=== PATIENT | female | born 1995 | race Caucasian/White ===

== ENCOUNTER 2022-09-02 08:59 | Outpatient (CLI) | payer OTHER, SELFPAY ==
--- OUTSIDE RECORDS SUMMARY | 2022-09-02 09:09 | XMS_ITS | Encounter Summary ---
:1995 Author Organization [facility] Address [address] [place] [address] Care Team Providers Name Role Phone Isabelle Garzon Primary Care Provider [phone] Reason for Visit Reason Comments Refill Encounter Details Date Type Department Care Team Description 12/29/2018 Refill [place] 1515 Luisa Contreras MD Refill Obstetrics/Gynecolog y [address] [place] [address] [facility] [address] [address] [place] [phone] (Wo rk) Social History Tobacco Use Types Packs/Day Years Used Date Smoking Tobacco: Never Smokeless Tobacco: Never Alcohol Use Standard Drinks/Week Comments Yes 0 (1 standard drink = 0.6 oz pure alcoho l) socially Sex Assigned at Date Recorded Not on file documented as of this encounter Nursing Notes Yoli Armas RN - 12/29/2018 10:51 AM CST Renewed medication per medication refill protocol. Requested Prescriptions Signed Prescriptions Disp Refills ??? TRI-SPRINTEC 0.18/0.215/0.25 MG-35 MCG tablet 84 Tablet 0 Sig: TAKE 1 TABLET BY MOUTH DAILY Authorizing Provider: LUISA CONTRERAS Ordering User: YOLI ARMAS UCT SUPPORT TECHNICIAN documented in this encounter Plan of Treatment Not on filedocumented as of this encounter Visit Diagnoses Diagnosis Encounter for surveillance of contracept sara pills Surveillance of previously prescribed co ntraceptive pill documented in this encounter Care Teams Electric Razor Mechanic Relationship Specialty Start Date End Date Isabelle Garzon DO PCP - General Family Practice 12/14/17 [address] [place] [address] documented as of this encounter
--- OUTSIDE RECORDS SUMMARY | 2022-09-02 09:09 | XMS_ITS | Clinical Summary ---
:1995 Author Organization [facility] Address [address] [place] [address] Care Team Providers Name Role Phone Eloy Garzonn Danilo Primary Care Provider [phone] Source Comments You are receiving this document as you are listed as the primary care provider,follow-up provider, or the patient has been referred to you for consultation.This is in compliance with the Medicare and Medicaid EHR Incentive Program,which states Providers who transition their patient to another setting of careor provider of care or refers their patient to another provider of care shouldprovide summarycare record for each transition of care or referral. [place] Allergies No known active allergies Medications Medication Sig Dispensed Refills Start Date End Date Status TRI-SPRINTEC TAKE 1 TABLET BY 84 Tablet 0 12/29/2018 Active 0.18/0.215/0.25 MG-35 MOUTH DAILY MCG tabletIndications: Encounter for surveillance of contraceptive pills Immunizations Name Administration Dates Next Due 4vHPV (Gardasil) 04/04/2012, 12/01/2011, 10/09/2011 DTaP 03/31/2007 HepA Adult (19+ yrs) 06/03/2016 HepB Adult (Engerix-B, 20+ yrs, 3 dose 06/03/2016 series) IPV (Polio) 06/03/2016 MMRV (ProQuad) 04/04/2010 Meningococcal MCV4, Unspecified 02/13/2016, 06/17/2011 Formulation PPSV23 (Pneumovax) 03/08/2015 Td 01/18/2017 Varicella 01/26/2008 Zoster (Zostavax) 08/20/2009 Family History Medical History Relation Name Comments Heart Disease Father High Cholesterol Father Hypertension Father repeative miscarriages Mother Cancer, Breast Maternal Aunt Leukemia Maternal Aunt Cancer Maternal Grandfather Heart Disease Maternal Grandfather Diabetes Maternal Grandmother Cancer, Breast Paternal Aunt Cancer Paternal Grandfather Heart Disease Paternal Grandfather Relation Name Status Comments Father Alive Mother Alive Maternal Aunt Maternal Grandfather Maternal Grandmother Alive Paternal Aunt Paternal Grandfather Alive Paternal Grandmother Alive Social History Tobacco Use Types Packs/Day Years Used Date Smoking Tobacco: Never Smokeless Tobacco: Never Alcohol Use Standard Drinks/Week Comments Yes 0 (1 standard drink = 0.6 oz pure alcoho l) socially Sex Assigned at Date Recorded Not on file Last Filed Vital Signs Vital Sign Reading Time Taken Comments Blood Pressure 98/62 02/18/2018 9:51 AM CDT Pulse 76 02/18/2018 9:51 AM CDT Temperature - - Respiratory Rate - - Oxygen Saturation - - Inhaled Oxygen Concentration - - Weight 77.7 kg (171 lb 3.2 oz) 02/18/2018 9:51 AM CDT Height 178.4 cm (5' 10.25) 02/18/2018 9:51 AM CDT Body Mass Index 24.39 02/18/2018 9:51 AM CDT Plan of Treatment Health Maintenance Due Date Last Done Comments Hep C Screening (Preventive 1994 Services) COVID-19 Vaccine (#1) 1995 HIV Screening (Preventive 2010 Services) HepB (2) 07/01/2016 06/03/2016 HepA (2 of 2 - Risk 2-dose 12/04/2016 06/03/2016 series) Pap 12/21/2019 12/21/2016 (Completed) Adult Preventive Visit 02/19/2020 02/18/2018 Influenza (#1) 2022 DTaP/Tdap/Td (3 - Tdap) 01/18/2027 01/18/2017, 03/31/2007 Zoster/Shingles (1 of 2) 2044 08/20/2009 Varicella Completed 04/04/2010, 01/26/2008 HPV Vaccine Completed 04/04/2012, 12/01/2011, 10/09/2011 Pneumococcal Aged Out 03/08/2015 No longer eligib le based on patient's age to complete this to pic MCV4 Completed 02/13/2016, 06/17/2011 IPV (Polio) Aged Out 06/03/2016 No longer eligib le based on patient's age to complete this to pic Hib Aged Out No longer eligib le based on patient's age to complete this to pic Insurance Payer Benefit Plan / Subscriber ID Effective Dates Phone Addre ss Type Group BCBS BCBS OUT OF [id number] 2016-Present [address] [address] [place] [address] Care Teams Family Day Carer Relationship Specialty Start Date End Date Isabelle Garzon, PCP - General Family Practice 12/14/[address] [place] [place] [id number]
--- OUTSIDE RECORDS SUMMARY | 2022-09-02 09:09 | XMS_ITS | Encounter Summary ---
:1995 Author Organization [facility] Address [address] [place] [address] Care Team Providers Name Role Phone Isabelle Garzon Primary Care Provider [phone] Reason for Visit Reason Onset Date Comments Refill 01/15/2020 Encounter Details Date Type Department Care Team Description 01/15/2020 Refill [place] [address]15 Liz Gonzalez MD Refill Obstetrics/Gynecolog y 1515 [facility] [place] 1515 [facility] . [address] [place] [address] [place] [phone] (Wo rk) Social History Tobacco Use Types Packs/Day Years Used Date Smoking Tobacco: Never Smokeless Tobacco: Never Alcohol Use Standard Drinks/Week Comments Yes 0 (1 standard drink = 0.6 oz pure alcoho l) socially Sex Assigned at Date Recorded Not on file documented as of this encounter Nursing Notes Wendy Mejia, RN - 01/15/2020 1:55 PM CST Requested Prescriptions Refused Prescriptions Disp Refills ??? norgestimate-ethinyl estradiol (TRI-SPRINTEC) 0.18/0.215/0.25 MG-35 MCG tablet 84 Tablet 0 Sig: Take 1 Tablet by mouth daily. Refused By: WENDY MEJIA Reason for Refusal: Patient no longer under Provider care Received fax refill request for Deloris Ochoa. No one listed under that name with corresponding .Contacted pt at listed number on fax from pharmacy; pt last year. Pt last seen here 02/18/18 for annual and this clinic hasn't refilled OCP since 12/29/18 #84 R0. Pt had also seen outside providercloser to her home, thinks they gave her refill last year. Offered to make an appointment at this clinic, she will call back. ICAN HISTORY TEACHER documented in this encounter Plan of Treatment Not on filedocumented as of this encounter Visit Diagnoses Diagnosis Encounter for surveillance of contracept sara pills Surveillance of previously prescribed co ntraceptive pill documented in this encounter Care Teams Plc Engineer Relationship Specialty Start Date End Date Isabelle Garzon DO PCP - General Family Practice 12/14/[address] [place] [address] [id number] documented as of this encounter
--- OUTSIDE RECORDS SUMMARY | 2022-09-02 09:09 | XMS_ITS | Encounter Summary ---
:1995 Author Organization [employer] Address [address] [place] [address] Care Team Providers Name Role Phone Isabelle Garzon Primary Care Provider [phone] Reason for Visit Reason Comments Annual Exam Encounter Details Date Type Department Care Team Description 02/18/2018 Office Visit [place] 1515 Liz Gonzalez Well fema le exam with routine gynecological exam (Primary Dx); Obstetrics/Gynecolog y MD Encounter for surveillance of contracept sara pills; [address] [facility] Screening examination for ve nereal disease [address] [address] [place] [address] [place] [phone] Social History Tobacco Use Types Packs/Day Years Used Date Smoking Tobacco: Never Smokeless Tobacco: Never Alcohol Use Standard Drinks/Week Comments Yes 0 (1 standard drink = 0.6 oz pure alcoho l) socially Sex Assigned at Date Recorded Not on file documented as of this encounter Last Filed Vital Signs Vital Sign Reading [...] Mass Index 24.39 02/18/2018 9:51 AM CDT documented in this encounter Progress Notes Liz Gonzalez MD - 02/18/2018 9:45 AM CDT Subjective: Date of encounter: 02/18/2018 Deloris Peoples is a 22 y.o. female who presents for an annual exam. Nutritional Assistant and general health concerns: Renew BCP. Has been on them since age 13. Started because she had not gotten her periods. Grew up in [place]. Has just moved back to [place] from [place]. Had a pap last year. Menstrual History: OB History Para Term AB Living 0 0 0 0 0 0 SAB TAB Ectopic Multiple Live Births 0 0 0 0 0 No LMP recorded. History reviewed. No pertinent past medical history. There are no active problems to display for this patient. Past Surgical History: Procedure Laterality Date ??? BREAST SURGERY Left 2011 benign lump ??? WISDOM TEETH EXTRACTION Family History Problem Relation Age of Onset ??? Hypertension Father ??? Heart Disease Father ??? High Cholesterol Father ??? Cancer, Breast Maternal Aunt 40 ??? Leukemia Maternal Aunt ??? Cancer, Breast Paternal Aunt ??? repeative miscarriages [OTHER] Mother ??? Diabetes Maternal Grandmother ??? Heart Disease Maternal Grandfather ??? Cancer Maternal Grandfather ??? Heart Disease Paternal Grandfather ??? Cancer Paternal Grandfather Social History Social History ??? Marital status: Single Spouse name: N/A ??? Number of children: N/A ??? 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 Smoking status: Never Smoker ??? Smokeless tobacco: Never Used ??? Alcohol use Yes Comment: socially ??? Drug use: No ??? Sexual activity: Yes Partners: Male control/ protection: OCP Other Topics Concern ??? Bike Helmet No ??? City Water Yes ??? Exercise No ??? Guns In Home No ??? Special Diet No ??? Weight Concern No Social History Narrative Moved here from [place], [place]. Employed by [employer], in . Lives with boyfriend. Current Outpatient Prescriptions Medication Sig Dispense Refill ??? norgestimate-ethinyl estradiol (TRI-SPRINTEC) 0.18/0.215/0.25 MG-35 MCG tablet Take 1 Tab by mouth daily. 90 Tab 3 No current facility-administered medications for this visit. No Known Allergies Review of Systems A comprehensive review of systems was negative. Objective: BP 98/62 (BP Location: Right Arm, BP Cuff Size: Adult Regular) Pulse 76 Ht 5' 10.25 (1.784 m) Wt 171 lb 3.2 oz (77.7 kg) BMI 24.39 kg/m2 General Appearance: Alert, cooperative, no distress, appears stated age Neck: Supple, symmetrical, trachea midline, no adenopathy; thyroid: no enlargement/tenderness/nodules Lungs: Clear to auscultation bilaterally, respirations unlabored Heart: Regular rate and rhythm, S1 and S2 normal, no murmur, rub or gallop Breast Exam: No tenderness, masses, or nipple abnormality Abdomen: Soft, non-tender, no masses, no organomegaly Genitalia: Normal female without lesion, discharge or tenderness Pelvic: Vagina, cervix, urethra and urethral meatus are normal. Extremities: Extremities normal, atraumatic, no cyanosis or edema Skin: Skin color, texture, turgor normal, no rashes or lesions Lymph nodes: Cervical, supraclavicular, and axillary nodes normal . Assessment: Diagnosis and Associated Orders ICD-10-CM 1. Well female exam with routine gynecological exam Z01.419 2. Encounter for surveillance of contraceptive pills Z30.41 norgestimate-ethinyl estradiol (TRI-SPRINTEC) 0.18/0.215/0.25 MG-35 MCG tablet 3. Screening examination for venereal disease Z11.3 CHLAMYDIA & GC Plan: Orders as listed with the associated diagnosis above. Pap smear: every 3 years with negative pap and negative HPV, due in 2019 documented in this encounter Plan of Treatment Not on filedocumented as of this encounter Procedures Procedure Name Priority Date/Time Associated Diagnosis Comme nts CHLAMYDIA & GC (14 Routine 02/18/2018 10:32 AM Screening Re sults for this YEARS AND OLDER) CDT examination for procedur e are in venereal disease the results section. documented in this encounter Results CHLAMYDIA & GC (02/18/2018 10:32 AM CDT) Patholo gist Method Time Signature Chlamydia Negative Negative PN SOFT Trachomatis STD Comment: Test Performed by Land Development Project Manager Mediated Amplification CLIA Number [id number] N. gonorrhoeae STD Negative Negative PN SOFT Comment: Test Performed by Land Development Project Manager Mediated Amplification Performed at [facility], [address] [place] [address], [place] ??[address] CLIA Number [id number] Source STD Vagina PN SOFT Comment: CLIA Number [id number] Specimen Anatomical Collection Method Collection Time Receive d Time (Source) Location / / Volume Laterality 02/18/2018 10:32 02/18/2018 2:59 AM CDT PM CDT Liz Gonzalez MD LAB_1 Performing Organization Address City/State/ZIP Code Phon e Number PN SOFT [address] [place] [address] documented in this encounter Visit Diagnoses Diagnosis Well female exam with routine gynecologi alicja exam - Primary Routine gynecological examination Encounter for surveillance of contracept sara pills Surveillance of previously prescribed co ntraceptive pill Screening examination for venereal disea se documented in this encounter Care Teams Cocoa Mill Operator Relationship Specialty Start Date End Date Isabelle Garzon DO PCP - General Family Practice 12/14/[address] [id number] documented as of this encounter
[2022-09-02 11:50] LABS: Cholesterol* 246 mg/dL (90-199); Glucose* 82 mg/dL (60-115)
[2022-09-02 11:51] LABS: HDL Cholesterol* 79 mg/dL (>=50); LDL Cholesterol Calculated 150 mg/dL (<100); Triglycerides* 87 mg/dL (40-149)
== END 2022-09-02 09:00 | disposition home or self-care (01) ==
PROVIDERS: PCP Family Medicine; Visit Provider Family Medicine
DX: Z01.419 Encounter for gynecological examination (general) (routine) without abnormal findings (principal); Z13.1 Encounter for screening for diabetes mellitus; Z13.6 Encounter for screening for cardiovascular disorders; F41.9 Anxiety disorder, unspecified
CPT/HCPCS: 80061; 82947

== ENCOUNTER 2022-10-28 11:55 | Outpatient (CLI) | payer OTHER, SELFPAY ==
--- OUTSIDE RECORDS SUMMARY | 2022-10-28 12:01 | XMS_ITS | Encounter Summary ---
:1995 Author Organization [facility] Address [address] [place] [address] Care Team Providers Name Role Phone Isabelle Garzon Primary Care Provider Reason for Visit Reason Comments Refill Encounter Details Date Type Department Care Team Description 12/29/2018 Refill [place] 1515 Liz Contreras MD Refill Obstetrics/Gynecolog y [address] [place] [facility] [facility] . [address] [place] [address] [place] [phone] (Wo rk) Social History Tobacco Use Types [...] 1 TABLET BY MOUTH DAILY Authorizing Provider: LIZ CONTRERAS Ordering User: YOLI ARMAS ER MATERIAL HANDLER documented in this encounter Plan of Treatment Not on filedocumented as of this encounter Visit Diagnoses Diagnosis Encounter for surveillance of contracept sara pills Surveillance of previously prescribed co ntraceptive pill documented in this encounter Care Teams Reimbursement Analyst Relationship Specialty Start Date End Date Isabelle Garzon DO PCP - General Family Practice 12/14/[address] [place] [address] [id number] documented as of this encounter
--- OUTSIDE RECORDS SUMMARY | 2022-10-28 12:01 | XMS_ITS | Clinical Summary ---
:1995 Author Organization [facility] Address [address] [place] [address] Care Team Providers Name Role Phone MalickgiovanySharmila tuckerlyn Danilo Primary Care Provider [phone] Source Comments You are receiving this [...] for each transition of care or referral. [facility] Allergies No known active allergies Medications Medication [...] ss Type Group BCBS BCBS OUT OF [id number] 2016-Present [address] [address] [place] [address] Care Teams Validation Architect Relationship Specialty Start Date End Date Isabelle Garzon DO PCP - General Family Practice 12/14/17 [address] [place] [address]
--- OUTSIDE RECORDS SUMMARY | 2022-10-28 12:01 | XMS_ITS | Encounter Summary ---
:1995 Author Organization [facility] Address [address] [place] [address] Care Team Providers Name Role Phone Isabelle Garzon Primary Care Provider Reason for Visit Reason Onset Date Comments Refill 01/15/2020 Encounter Details Date Type Department Care Team Description 01/15/2020 Refill [place] 1515 Liz Gonzalez MD Refill Obstetrics/Gynecolog y 1515 [facility] [place] [address] [facility] . [address] [place] [address] [place] [address] (Wo rk) Social History Tobacco Use Types [...] at this clinic, she will call back. ERVATION PLANNER documented in this encounter Plan of Treatment Not on filedocumented as of this encounter Visit Diagnoses Diagnosis Encounter for surveillance of contracept sara pills Surveillance of previously prescribed co ntraceptive pill documented in this encounter Care Teams Flying Squad Salesperson Relationship Specialty Start Date End Date Isabelle Garzon, PCP - General Family Practice 12/14/[address] [place] [id number] documented as of this encounter
--- OUTSIDE RECORDS SUMMARY | 2022-10-28 12:01 | XMS_ITS | Encounter Summary ---
:1995 Author Organization [facility] Address [address] [place] [address] Care Team Providers Name Role Phone Isabelle Garzon Primary Care Provider [phone] Reason for Visit Reason Comments Annual Exam Encounter Details Date Type Department Care Team Description 02/18/2018 Office Visit [place] 1515 Liz Gonzalez Well fema le exam with routine gynecological exam (Primary Dx); Obstetrics/Gynecolog y MD Encounter for surveillance of contracept sara pills; [address] 1515 [facility] Screening examination for ve nereal disease [address] [address] [place] [address] [place] [phone] Social History Tobacco Use Types Packs/Day Years [...] female who presents for an annual exam. 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 Has been on them since age 13. Started because she had not gotten her periods. Grew up in [place]. Has just moved back to [place] from [place]. Had a pap last year. Menstrual History: [...] No Social History Narrative Moved here from [place], [place]. Employed by [email or web address], in . Lives with boyfriend. Current Outpatient [...] SOFT Trachomatis STD Comment: Test Performed by Steel Hanger Mediated Amplification CLIA Number [id number] N. gonorrhoeae STD Negative Negative PN SOFT Comment: Test Performed by Steel Hanger Mediated Amplification Performed at [facility], [address] [place] [address], [place] ??[address] CLIA Number [id number] Source STD Vagina PN SOFT Comment: CLIA Number [id number] Specimen Anatomical Collection Method Collection Time Receive d Time (Source) Location / / Volume Laterality 02/18/2018 10:32 02/18/2018 2:59 AM CDT PM CDT Liz Gonzalez MD LAB_1 Performing Organization Address City/State/ZIP Code Phon e Number PN SOFT [address] [place] [address] [phone] documented in this encounter Visit Diagnoses Diagnosis Well female exam with routine gynecologi alicja exam - Primary Routine gynecological examination Encounter for surveillance of contracept sara pills Surveillance of previously prescribed co ntraceptive pill Screening examination for venereal disea se documented in this encounter Care Teams Gas Welder Relationship Specialty Start Date End Date Isabelle Garzon DO PCP - General Family Practice 12/14/[address] [id number] documented as of this encounter
[2022-10-28 17:59] LABS: Chloride* 105 mmol/L (96-114); Potassium* 4.3 mmol/L (3.6-5.1); Sodium* 139 mmol/L (135-149)
[2022-10-28 18:02] LABS: Carbon Dioxide* 28 mmol/L (20-32); Creatinine* 0.8 mg/dL (0.5-1.5); Estimated Glomerular Filt Rate 103 ml/min
[2022-10-28 18:03] LABS: Blood Urea Nitrogen* 10 mg/dL (5-24); Calcium* 9.4 mg/dL (8.4-10.6); Glucose* 99 mg/dL (60-115)
[2022-10-28 18:18] LABS: Uric Acid* 4.7 mg/dL (2.2-8.4)
== END 2022-10-28 11:56 | disposition home or self-care (01) ==
PROVIDERS: PCP Family Medicine; Visit Provider Family Medicine
DX: E78.5 Hyperlipidemia, unspecified (principal); M25.50 Pain in unspecified joint; F41.9 Anxiety disorder, unspecified; R21 Rash and other nonspecific skin eruption
CPT/HCPCS: 80048; 84550